=== PATIENT | female | born 1940 | race Caucasian/White ===

== ENCOUNTER 2016-12-29 08:08 | Outpatient (CLI) ==
[2016-12-29 13:12] LABS: BASOPHILS # (AUTO) 0.1 K/uL (0-0.2); BASOPHILS % (AUTO) 0.8 % (0.0-3.0); EOSINOPHILS # (AUTO) 0.2 K/ul (0.0-0.7); EOSINOPHILS % (AUTO) 2.3 % (0.0-7.0); HEMATOCRIT 46.6 % (37.0-47.0); HEMOGLOBIN 14.9 g/dl (12.0-16.0); LYMPHOCYTES # (AUTO) 2.2 K/uL (0.60-3.4); LYMPHOCYTES % (AUTO) 33.3 (10.0-50.0); MEAN CORPUSCULAR HEMOGLOBIN 29.6 pg (27.0-31.0); MEAN CORPUSCULAR VOLUME 92.5 fl (81.0-99.0); MONOCYTES # (AUTO) 0.3 K/uL (0.4-2.0); MONOCYTES % (AUTO) 5.1 (0-10); NEUTROPHILS # (AUTO) 3.9 K/ul (2.0-6.9); NEUTROPHILS % (AUTO) 58.5; PLATELET COUNT 196 10^3/uL (140-440); RED BLOOD COUNT 5.04 10^6/ul (4.20-5.40); WHITE BLOOD COUNT 6.64 K/ul (4.6-10.2)
[2016-12-29 13:26] LABS: BILIRUBIN,URINE Negative (NEGATIVE); KETONES,URINE Negative (NEGATIVE); LEUKOCYTE ESTERASE ,URINE Negative (NEGATIVE); NITRITE,URINE Negative (NEGATIVE); PROTEIN,URINE Negative (NEGATIVE); URINE, BLOOD Negative (NEGATIVE)
[2016-12-29 13:27] LABS: ADD URINE MICROSCOPIC NO
[2016-12-29 14:29] LABS: ALBUMIN 3.7 g/dL (3.4-5.0); ALBUMIN/GLOBULIN RATIO 1.06; ANION GAP 14.7; BILIRUBIN,TOTAL 0.44 mg/dL (0.00-1.20); BUN/CREATININE RATIO 23.07; CALCIUM 9.3 mg/dL (8.2-10.2); CHOL/HDL RATIO 2.8 (4.5-5.5); CREATININE 0.78 mg/dL (0.60-1.30); POTASSIUM 3.7 mmol/L (3.5-5.10); TOTAL PROTEIN 7.2 g/dL (5.8-8.1)
== END 2016-12-29 08:09 | disposition home or self-care (01) ==
LOC: LAB 08:08
PROVIDERS: ATTEND General Practice
DX: E78.5 Hyperlipidemia, unspecified (principal); I10 Essential (primary) hypertension; I63.9 Cerebral infarction, unspecified; Z79.899 Other long term (current) drug therapy; Z68.37 Body mass index [BMI] 37.0-37.9, adult
CPT/HCPCS: 36415; 80053; 80061; 81001; 85025

== ENCOUNTER 2017-05-25 10:35 | Outpatient (CLI) ==
[2017-05-25 13:52] LABS: BASOPHILS % (AUTO) 0.5 % (0.0-3.0); EOSINOPHILS # (AUTO) 0.1 K/ul (0.0-0.7); EOSINOPHILS % (AUTO) 2.2 % (0.0-7.0); HEMATOCRIT 47.9 % (37.0-47.0); HEMOGLOBIN 15.5 g/dl (12.0-16.0); IMMATURE GRANULOCYTE % (AUTO) 0.2 % (0.0-5.0); LYMPHOCYTES # (AUTO) 1.9 K/uL (0.60-3.4); LYMPHOCYTES % (AUTO) 30.3 (10.0-50.0); MEAN CORPUSCULAR HEMOGLOBIN 29.7 pg (27.0-31.0); MEAN CORPUSCULAR HGB CONC 32.4 (31.8-35.4); MEAN CORPUSCULAR VOLUME 91.8 fl (81.0-99.0); MONOCYTES # (AUTO) 0.4 K/uL (0.4-2.0); MONOCYTES % (AUTO) 5.6 (0-10); NEUTROPHILS # (AUTO) 3.9 K/ul (2.0-6.9); NEUTROPHILS % (AUTO) 61.2; PLATELET COUNT 225 10^3/uL (140-440); RED BLOOD COUNT 5.22 10^6/ul (4.20-5.40); WHITE BLOOD COUNT 6.38 K/ul (4.6-10.2)
[2017-05-25 14:14] LABS: ALBUMIN 3.7 g/dL (3.4-5.0); ALBUMIN/GLOBULIN RATIO 0.95; ANION GAP 16.8; BILIRUBIN,TOTAL 0.4 mg/dL (0.00-1.20); BUN/CREATININE RATIO 17.85; CALCIUM 9.4 mg/dL (8.2-10.2); CHOL/HDL RATIO 4.1 (4.5-5.5); CREATININE 0.84 mg/dL (0.60-1.30); POTASSIUM 3.8 mmol/L (3.5-5.10); TOTAL PROTEIN 7.6 g/dL (5.8-8.1)
[2017-05-25 14:29] LABS: BILIRUBIN,URINE Negative (NEGATIVE); KETONES,URINE Negative (NEGATIVE); LEUKOCYTE ESTERASE ,URINE 1+ (NEGATIVE); NITRITE,URINE Negative (NEGATIVE); PH,URINE 5.5 (5-9); PROTEIN,URINE Negative (NEGATIVE); URINE, BLOOD Negative (NEGATIVE)
[2017-05-25 15:10] LABS: ADD URINE MICROSCOPIC YES
[2017-05-25 15:12] LABS: BACTERIA,URINE 1+ (NOT PRESENT)
== END 2017-05-25 10:36 | disposition home or self-care (01) ==
LOC: LAB 10:35
PROVIDERS: ATTEND General Practice
DX: E78.5 Hyperlipidemia, unspecified (principal); I10 Essential (primary) hypertension; Z79.899 Other long term (current) drug therapy
CPT/HCPCS: 36415; 80053; 80061; 81001; 85025; 87086

== ENCOUNTER 2018-02-09 12:16 | Outpatient (CLI) | END 2018-02-09 12:17 | disposition home or self-care (01) | LOC: FCC-LAB 12:16 | PROVIDERS: ATTEND General Practice | DX: E78.5 Hyperlipidemia, unspecified (principal); I10 Essential (primary) hypertension; I63.9 Cerebral infarction, unspecified; Z79.899 Other long term (current) drug therapy; K59.00 Constipation, unspecified | CPT/HCPCS: 36415; 80053; 80061; 81001; 82272; 85025; 87086 ==

== ENCOUNTER 2018-09-06 18:15 | Outpatient (CLI) | payer OTHER | END 2018-09-06 18:16 | disposition home or self-care (01) | LOC: LAB 18:15 | PROVIDERS: ATTEND General Practice | DX: E78.5 Hyperlipidemia, unspecified (principal); Z79.899 Other long term (current) drug therapy; Z68.37 Body mass index [BMI] 37.0-37.9, adult | CPT/HCPCS: 36415; 80053; 80061; 85025 ==

== ENCOUNTER 2018-11-07 08:58 | Emergency (ER) ==
[2018-11-07 09:04] VITALS: BP 181/84; TEMP 98.6; BMI 39.0
--- NOTE | 2018-11-07 09:12 | ED.PDOC ---
General ED Provider: Dr. MAR DANIEL-ER Chief Complaint: Rash Stated Complaint: shashi got this rash--shashi had it before Time Seen by Physician: 09:10 Mode of Arrival: Walk-In Information Source: Patient Exam Limitations: No limitations Primary Care Provider: JUAN RIBEIRO-[facility] Nursing and Triage Documentation Reviewed and Agree: Yes Does patient meet sepsis criteria?: No System Inflammatory Response Syndrome: Not Applicable Sepsis Protocol: For patient's 13 years and over: Temp is 96.8 and below OR 101 and greater Pulse >90 BPM Resp >20/minute Acutely Altered Mental Status Are patient's symptoms suggestive of a new infection, such as: -Pneumonia -Skin, Soft Tissue -Endocarditis -UTI -Bone, Joint Infection -Implantable Device -Acute Abdominal Infection -Wound Infection -Meningitis -Blood Stream Catheter Infection -Unknown Skin Complaint Exam - Skin Rash/Itching Complaint/Exam Onset/Duration: several days Symptoms Are: Still present Initial Severity: Mild Current Severity: Moderate Location: torso Potential Exposures: Reports: Medicines Aggravating: Reports: None Alleviating: Reports: None Associated Signs and Symptoms: Denies: Difficulty breathing, Fever, Chills Skin Findings: Present: Maculae, Lesions Differential Diagnoses: Allergic Reaction, Drug Rash, Other Review of Systems - Review Of Systems Constitutional: Reports: No symptoms Eyes: Reports: No symptoms Ears, Nose, Mouth, Throat: Reports: No symptoms Respiratory: Reports: No symptoms Cardiac: Reports: No symptoms GI: Reports: No symptoms : Reports: No symptoms Musculoskeletal: Reports: No symptoms Skin: Reports: Rash Neurological: Reports: No symptoms Endocrine: Reports: No symptoms Hematologic/Lymphatic: Reports: No symptoms All Other Systems: Reviewed and Negative Past Medical History - Past Medical History Previously Healthy: Yes Endocrine: Reports: None Cardiovascular: Reports: Hypertension Respiratory: Reports: None Hematological: Reports: None Gastrointestinal: Reports: None Genitourinary: Reports: None Neuro/Psych: Reports: None Musculoskeletal: Reports: None Cancer: Reports: None Last Menstrual Period: NONE - Surgical History General Surgical History: Reports: Unknown - Family History Family History: Reports: Unknown - Social History Smoking Status: Former smoker Hx Substance Use: No Alcohol Screening: None Physical Exam - Physical Exam Appearance: Well-appearing, No pain distress, Well-nourished Eyes: AMALIA, EOMI, Conjunctiva clear ENT: Ears normal, Nose normal, Oropharynx normal Neck: Supple Respiratory: Airway patent, Breath sounds clear, Breath sounds equal, Respirations nonlabored Cardiovascular: RRR, Pulses normal, No rub, No murmur GI/: Soft, Nontender, No masses, Bowel sounds normal, No Organomegaly Musculoskeletal: Normal strength, ROM intact, No edema, No calf tenderness Skin: Warm, Dry, Normal color Neurological: Sensation intact, Motor intact, Reflexes intact, Cranial nerves intact, Alert, Oriented Psychiatric: Affect appropriate, Mood appropriate Critical Care Note - Critical Care Note Total Time (mins): 0 Course - Course Vital Signs: Temp Pulse Resp BP Pulse Ox 11/07/18 08:58 98.6 F 83 20 181/84 H 96 Departure - Departure Time of Disposition: 09:12 Disposition: HOME SELF-CARE Discharge Problem: Pruritic rash Instructions: Acute Rash (ED) Condition: Good Pt referred to PMD for follow-up: Yes IPMP verified?: No Additional Instructions: prednisone 20mg x 3 days then 10mg x 4 days then 5mg x 3 days------lidex cream apply tid in a thin layer---recheck with dr ward in a few days if not improving Allergies/Adverse Reactions: Allergies No Known Allergies Allergy (Verified 11/07/18 09:04) Disposition Discussed With: Patient
== END 2018-11-07 09:18 | disposition home or self-care (01) ==
LOC: ED 08:58
DX: R21 Rash and other nonspecific skin eruption (principal); L29.9 Pruritus, unspecified
CPT/HCPCS: 99282

== ENCOUNTER 2019-04-12 07:59 | Outpatient (CLI) | END 2019-04-12 08:00 | disposition home or self-care (01) | LOC: RHC-LAB 07:59 | PROVIDERS: ATTEND General Practice | DX: E78.5 Hyperlipidemia, unspecified (principal); I10 Essential (primary) hypertension; Z79.899 Other long term (current) drug therapy; Z68.37 Body mass index [BMI] 37.0-37.9, adult | CPT/HCPCS: 36415; 80053; 80061; 85025 ==

== ENCOUNTER 2019-04-18 15:46 | Observation (INO) ==
[2019-04-18 16:31] VITALS: BMI 34.2
[2019-04-18] MEDS: LOVENOX SUBCUT SCH (17:35)
--- NOTE | 2019-04-18 18:04 | CT ---
EXAM: CT of the abdomen and pelvis without contrast. HISTORY: Abdominal pain and constipation. PROCEDURE: Contiguous axial CT images of the abdomen and pelvis without contrast with coronal and sa gittal reformats. FINDINGS: The liver, gallbladder, pancreas, spleen, adrenal glands and kidneys are normal in appearan ce. The abdominal aorta is within normal limits in diameter. There are atherosclerotic calcificatio ns in the major arteries of the abdomen and pelvis. The appendix is normal in appearance. There is diverticulosis of the colon with no evidence of diverticulitis. There is ill-defined wall thickening in the rectum measuring approximately 1 cm with perirectal and presacral edema. No free fluid or fr ee air in the abdomen or pelvis. The bladder is adequately filled and normal in appearance. The solomon bg is unremarkable. There are degenerative changes in the spine. Impression: Ill-defined wall thickening in the rectum measuring approximately 1 cm with perirectal an d presacral edema. The differential diagnosis includes proctitis and neoplasm. Diverticulosis of the colon with no evidence of diverticulitis.
[2019-04-18] MEDS ORDERED: INFUVITE ADULT IV ONE (20:14)
[2019-04-18] MEDS: INFUVITE ADULT 10 ML in DEXTROSE 5%-LR IV SOLUTION 1,000 ML IV SCH (20:22)
[2019-04-18] MEDS: COZAAR PO SCH (20:23)
--- NOTE | 2019-04-18 21:35 | CT ---
Exam: CT scan of the thorax without contrast. Date: 04/18/2019. Comparison: None. HISTORY: Fatigue. TECHNIQUE: Helical scan of the thorax was performed without contrast. FINDINGS: The thoracic inlet and axillary regions are normal. Granulomatous calcifications are pres ent in the mediastinum. No suspicious mediastinal adenopathy is seen. Caliber of the thoracic aorta cardiac chambers are normal. The spleen and liver have a uniform attenuation. The gallbladder, sto mach, pancreas and adrenal glands are normal. The kidneys have a normal morphology. No calculi or h ydronephrosis is seen. No acute osseous abnormalities are seen. There is a calcified disc protrusion at T6-7 causing the le ft lateral impression upon the thecal sac and cord. Evaluation at lung window settings demonstrates granulomatous calcifications. No suspicious pulmonar y nodules, pleural fluid or consolidation is present. The tracheobronchial tree is patent. Impression: No acute intrathoracic findings. Old granulomatous disease. There is a calcified disc protrusion at T6-7 causing left lateral impression upon the thecal sac and cord. The clinical significance of this finding is not known. If further evaluation is needed then MRI would be suggested.
[2019-04-19] MEDS: POTASSIUM CHLORIDE IV SCH ×2 (08:47→21:51)
[2019-04-19] MEDS: INFUVITE ADULT IV SCH ×2 (08:47→21:51)
[2019-04-19] MEDS: [UNRECOGNIZED DRUG - OTHER] IV SCH ×2 (08:47→21:51)
[2019-04-19] MEDS: LOVENOX SUBCUT SCH (08:48)
[2019-04-19] MEDS: TOPROL XL PO SCH (08:49)
[2019-04-19] MEDS: HYDROCHLOROTHIAZIDE PO SCH (08:49)
[2019-04-19] MEDS: NON-FORMULARY MEDICATION (Hydroxyzine Hcl [Hydroxyzine Hcl] 10 MG) PO SCH (08:49)
[2019-04-19] MEDS: PLAVIX PO SCH (08:49)
[2019-04-19] MEDS: NORVASC PO SCH (08:50)
[2019-04-19] MEDS: INFUVITE ADULT 10 ML in DEXTROSE 5%-LR IV SOLUTION 1,000 ML IV SCH (08:50)
[2019-04-19] MEDS: K-DUR PO SCH ×2 (08:50→17:07)
[2019-04-19] MEDS: LIPITOR PO SCH (08:50)
[2019-04-19] MEDS: COZAAR PO SCH ×2 (08:53→20:05)
[2019-04-19] MEDS ORDERED: INFUVITE ADULT IV ONE (21:33)
[2019-04-19] MEDS ORDERED: POTASSIUM CHLORIDE 20 MEQ VIAL IV ONE (21:33)
[2019-04-20] MEDS ORDERED: MILK OF MAGNESIA PO STA (08:50)
[2019-04-20] MEDS: PLAVIX PO SCH (08:58)
[2019-04-20] MEDS: LIPITOR PO SCH (08:58)
[2019-04-20] MEDS: HYDROCHLOROTHIAZIDE PO SCH (08:59)
[2019-04-20] MEDS: NORVASC PO SCH (08:59)
[2019-04-20] MEDS ORDERED: MIRALAX PO SCH (09:00)
[2019-04-20] MEDS: TOPROL XL PO SCH (09:00)
[2019-04-20] MEDS: K-DUR PO SCH (09:01)
[2019-04-20] MEDS: COZAAR PO SCH (09:02)
[2019-04-20] MEDS: NON-FORMULARY MEDICATION (Hydroxyzine Hcl [Hydroxyzine Hcl] 10 MG) PO SCH (09:02)
--- NOTE | 2019-04-20 10:01 | HP ---
DATE OF SERVICE: 04/18/19 CHIEF COMPLAINT: Weakness, dehydration, abdominal pain and constipation. HISTORY OF PRESENT ILLNESS: Ms. Richmond is a pleasant 78-year-old patient of Dr. Mcdonald who presented to the office yesterday with complaints of abdominal discomfort, constipation, weakness , inability to eat any solid foods over the past week. She reports that she had tried stool softeners to help with the constipation and had very little results. She did report that she had been going to [employer] since February of 2019 and she had lost some weight however after reviewing chart notes her weight was 219 lbs today and according to the last visit she had lost a total of 22.2 lbs since her visit in December 2018. She does admit that she has not been able to eat any solid foods for the past one week. She denies any nausea however she reports that she just cannot eat. She does feel dehydrated. Upon physical exam she does have poor skin turgor. Her tongue is very dry. She does appear very weak. Abdomen is tender on exam. She is accompanied by her friend, Mary Moreon. She does have issues with chronic constipation. PAST MEDICAL HISTORY: Dyslipidemia Hypertension Stroke PAST SURGICAL HISTORY: None SOCIAL HISTORY: Former smoker, stopped at age 36. Denies any ETOH or recreational drug use. MEDICATIONS: (HOME) Metoprolol Succinate 25 mg Extended Release one tablet daily Lisinopril 20 mg tablet daily Hydrochlorothiazide 25 mg tablet daily Amlodipine 5 mg daily Plavix 75 mg daily Atorvastatin 10 mg daily ALLERGIES: NKDA REVIEW OF SYSTEMS: CONSTITUTIONAL: Denies any fever, chills, nightsweats. Does report a weight change and a weight loss. According to charts, she has had a 22 lb weight loss since her last visit in December 2018. HEENT: Denies any complaints of headache, nasal drainage or sore throat. CARDIOVASCULAR: No reports of chest pain. Regular rhythm. Denies any orthopnea or peripheral edema. LUNGS: No reports of shortness of breath, cough or congestion. No reports of a lung disease. GASTROINTESTINAL: She has some abdominal tenderness. Denies any nausea, vomiting or diarrhea. She has had some issues of constipation unrelieved with stool softeners. Denies any blood in the stool. GENITOURINARY: No reports of dysuria, hematuria, nocturia. Denies any urinary incontinence. MUSCULOSKELETAL: Does report generalized fatigue and weakness. No reports of joint redness, swelling. NEUROLOGIC: No reports of dizziness. Does complain of generalized fatigue. Does have a history of CVA. PSYCHOLOGICAL: No reports of anxiety, depression or mood changes. ENDOCRINE: No history of diabetes mellitus. No reports of thyroid disease. No reports of increased thirst, urination, heat or cold intolerance. INTEGUMENT: She does report a rash that is chronic dry skin to her arms and legs. PHYSICAL EXAMINATION: GENERAL: She is alert, oriented. She does appear dehydrated and very weak. VITAL SIGNS: In the office, she is 67" tall, weight 219 lbs, temperature 97.2, pulse rate 93, respirations 16, blood pressure 118/73, pulse ox 98% on room air. HEENT: Normocephalic, atraumatic. Pupils reactive to light. Conjunctivae clear. Mucous membranes moist. Throat: No inflammation, tumors or exudate. NECK: Supple. No lymphadenopathy. No thyromegaly. No carotid bruits auscultated. CARDIAC: S1, S2, regular rate and rhythm. Peripheral pulses palpable. No peripheral edema. LUNGS: Clear to auscultation. Breathing regular. ABDOMEN: Soft, mild tenderness. Bowel sounds are positive. No rebound tenderness. No rigidity. NEUROLOGIC: Cranial nerves 2-12 grossly intact. No neurological deficit. SKIN: Warm and dry. She does have some dry skin to her upper extremities. LABS/DIAGNOSTIC TESTING: None available. ASSESSMENT: 1. CONSTIPATION WITH ABDOMINAL PAIN 2. DEHYDRATION 3. WEAKNESS AND FATIGUE 4. WEIGHT LOSS 5. HYPERTENSION 6. HYPERLIPIDEMIA PLAN: 1. Admit the patient as a 23 hour observation patient. 2. We will order a CT scan of the abdomen and pelvis. 3. Resume home medications. 4. Place her on telemetry monitoring. 5. Order labs including urine culture. 6. Order IV fluids pending result of CT scan of the abdomen and pelvis. 7. Further orders and recommendation per Dr. Mcdonald. TIME SPENT: GREATER THAN 65 MINUTES MTDD
[2019-04-20] MEDS ORDERED: FLAGYL 500 MG/100 ML 500 MG in PREMIX 100 ML NS 1 BAG IV SCH (10:30)
[2019-04-20] MEDS ORDERED: ROCEPHIN 2 GM in SODIUM CHLORIDE 100 ML IV SCH (10:30)
[2019-04-20] MEDS ORDERED: ROCEPHIN 2 GM in SODIUM CHLORIDE 50 ML IV SCH (11:00)
[2019-04-20 14:04] VITALS: BP 155/65; TEMP 98.7
--- NOTE | 2019-04-21 13:11 | PN ---
DATE OF SERVICE: 04/19/19 SUBJECTIVE: Today Ms. Richmond is resting in her bed. She is in no acute distress. Vital signs this morning at 5:01 this morning: Temperature 98.0, pulse rate 80, blood pressure 134/79, respiratory rate 18, 02 saturation 95% on room air. It was recorded that she had 75% of breakfast this morning. Labs were drawn at 4 o'clock this morning. CBC was unremarkable. Chemistry panel revealed a potassium level of 2.87. BUN 28, creatinine 0.94, GFR 58, LFTs normal. Urinalysis drawn 04/19/19 reviewed and showed negative nitrates and trace amount of blood. She did have a CT scan completed on the abdomen and pelvis as well as a CT of the chest. The CT of the abdomen and pelvis showed an ill-defined wall thickening in the rectum measuring approximately 1 cm with perirectal and presacral edema. The differential diagnosis includes proctitis and neoplasm and also reveals diverticulosis of the colon with no evidence of diverticulitis. A CT of the chest was also completed on admission, does show no acute intrathoracic findings. Shows old granulomatous disease. There was a calcified disk protrusion at T6 through T7 causing left lateral impression upon the thecal sac and cord. The clinical significance of this finding is not known. The findings of the CT scan of the abdomen and pelvis were discussed with the patient this morning by Dr. Mcdonald. The patient does verbalized understanding of the findings. Potassium has been ordered and her IV fluids and potassium oral placement has also been ordered. PT consult has also been ordered in regards to her weakness. Will continue to follow this patient in regards to her test results and lab results and potassium replacement. Further orders and recommendations per Dr. Mcdonald. [facility]
--- NOTE | 2019-04-28 13:08 | DS ---
DATE OF SERVICE: 04/20/19 FINAL DIAGNOSES: 1. Abdominal pain with constipation 2. Concerns for proctitis per CT of the abdomen and pelvis with a differential to including possible neoplasm per the CT scan of the abdomen and pelvis there was an ill defined wall thickening in the rectum measuring approximately 1cm with pararectal and presacral edema with a differential diagnosis to include proctitis and neoplasm. 3. Dehydration treated with IV fluids resolved at discharge 4. Hypokalemia treated with IV potassium and oral Potassium as inpatient resolved at discharge 5. Weakness and fatigue improved at discharge 6. Weight loss 7. Hypertension 8. Hyperlipidemia HOSPITAL COURSE: Mrs. Richmond is a pleasant 78 [address] of Dr[address] Mcdonald who presented to the office with complaints of abdominal discomfort, constipation, weakness and inability to eat any solids over the past one week. She reports that she had tried some stool softeners to help with the constipation and had very little results. She did report that she had been going to [employer] since February 2019 and had lost some weight however after reviewing chart notes her weight was 219 pounds on the day of admission and according to last visit she had lost a total of 22.2 pounds since her visit in December of 2018. She does admit that she had not been able to eat any solid foods for the past one week without any nausea. However she does report that she can not eat. She felt dehydrated. Skin turgor was poor. Her tongue was very dry and she was very visible weak. Abdomen was tender. It was was decided to admit the patient to the hospital for further evaluation and treatment due to the weight loss and inability to eat and further workup of the abdominal tenderness. Pertinent labs and diagnostic testing as she did have a CT scan of the abdominal and pelvic as mentioned above in the assessment and diagnosis it did show concern for proximal proctitis verus neoplasm. She does defer a colonoscopy. She is very persistent that this not be performed. Her Potassium did get as low as 2.87 while inpatient. She was treated with IV Potassium as well as oral Potassium. CBC on admission was 10.99. This has come down to 6.86. Dr. Mcdonald did start her on an antibiotics while inpatient. She was started on Flagyl IV as well as Ceftriaxone IV. She does feel a lot better. Today she is wanting to go home. Her medications were adjusted. Dr. Mcdonald said that he felt the rash was due to possibly the Lisinopril prescription and changed her to Cozaar and this has improved. He is treating the Proctitis with antibiotics. We will send her home on K-dur prescription oral for 20meq daily with plans to recheck her Potassium and kidney next week with a followup appointment. She will also be sent home on Flagyl oral prescription 500mg three times a day for 7 days as well as Cefdinir 300mg #14 twice a day for 7 days to treat her constipation. We discussed about increasing her vegetables in her diet as well as prescription for Miralax 17gram daily. She is agreeable to all of this. DISCHARGE DIET: As mentioned above she will increase the vegetables in her diet and regular diet as tolerated. DISCHARGE MEDICATIONS: Resume her home medications with addition of the medications mentioned above. She will stop her Lisinopril and change to Cozaar 50mg twice a day. K-Dur 20meq daily. The Flagyl 500mg three times a day for 7 days and Cefdinir 300mg # 14 twice a day for 7 days and Miralax 17 grams daily. The rest of her home medications will be resumes. DISCHARGE ACTIVITY LEVEL: Increase activity level as tolerated. Followup appointment in one week with Dr. Mcdonald and BNP next . Further orders and recommendations per Dr. Mcdonald. Medications have been called to [facility]. TIME SPENT: GREATER THAN 30 MINUTES MTDD
== END 2019-04-20 14:46 | disposition home or self-care (01) ==
LOC: MEDSURG A 15:46
PROVIDERS: ADMIT General Practice; ATTEND General Practice
DX: R10.9 Unspecified abdominal pain (principal); R53.1 Weakness; E86.0 Dehydration; K59.00 Constipation, unspecified; R53.83 Other fatigue; R63.4 Abnormal weight loss; I10 Essential (primary) hypertension; E78.5 Hyperlipidemia, unspecified; E87.6 Hypokalemia
CPT/HCPCS: 36415; 80053; 80061; 81001; 82378; 84436; 84443; 85025; 87086; 96361; 96365; 96368; 96372

== ENCOUNTER 2019-04-28 12:12 | Outpatient (CLI) | END 2019-04-28 12:13 | disposition home or self-care (01) | LOC: RHC-LAB 12:12 | PROVIDERS: ATTEND General Practice | DX: K59.00 Constipation, unspecified (principal); E86.0 Dehydration; R53.1 Weakness; R53.83 Other fatigue; E87.6 Hypokalemia | CPT/HCPCS: 36415; 80053 ==

== ENCOUNTER 2019-05-11 09:18 | Outpatient (CLI) | payer OTHER | END 2019-05-11 09:19 | disposition home or self-care (01) | LOC: RHC-LAB 09:18 | PROVIDERS: ATTEND General Practice | DX: E78.5 Hyperlipidemia, unspecified (principal); I10 Essential (primary) hypertension | CPT/HCPCS: 36415; 80053 ==

== ENCOUNTER 2022-10-14 13:24 | Inpatient (IN) ==
[2022-10-14] MEDS ORDERED: SODIUM CHLORIDE 1,000 ML IV STA ×2 (13:36→14:49)
--- NOTE | 2022-10-14 13:41 | ED.PDOC ---
General ED Provider: Dr. DYAN CORRALES MD Chief Complaint: Weakness Stated Complaint: mild to mod general weakness today after slipping off the bed, lives alone, uses a walker, too weak to get off the floor last night, no bleeding, no loc, no neck pain, gcs 15, no NV, no fever, +diarrhea w/o blood, no hx dm or mi Time Seen by Provider: 10/14/22 13:32 Mode of Arrival: Ambulance Information Source: Patient and EMT Nursing and Triage Documentation Reviewed and Agree: Yes Does patient meet sepsis criteria?: No System Inflammatory Response Syndrome: Not Applicable Sepsis Protocol: For patient's 13 years and over: Temp is 96.8 and below OR 101 and greater Pulse >90 BPM Resp >20/minute Acutely Altered Mental Status Are patient's symptoms suggestive of a new infection, such as: -Pneumonia -Skin, Soft Tissue -Endocarditis -UTI -Bone, Joint Infection -Implantable Device -Acute Abdominal Infection -Wound Infection -Meningitis -Blood Stream Catheter Infection -Unknown Review of Systems Review Of Systems Constitutional: Reports Weakness; Denies Fever Eyes: Denies Vision change Ears, Nose, Mouth, Throat: Denies Epistaxis Respiratory: Denies Cough, Short of air or Wheezing Cardiac: Denies Chest pain GI: Denies Abdominal pain or Vomiting Musculoskeletal: Denies Back pain or Neck pain Skin: Denies Rash or Cyanosis Neurological: Denies Cognitive dysfunction or Headache All Other Systems: Other [facility] Medical History Dyslipidemia Hypertension Stroke Family History Mother No problems noted. FATHER ID (myocardial infarction) Social History Smoking and tobacco status: Former smoker Alcohol intake: current Alcohol intake frequency: holidays/special occasions only Alcohol type: beer Substance use type: does not use Counseling given: No Counseling provided: none Household members: none Marital status: W / Lives independently: Yes Number of children: 0 service: No MCFP: No Current occupational status: retired Pets and animals: Yes Sexually active: No Do you think of yourself as: straight/heterosexual Current gender identity: female Female Reproductive History Menstrual Hx Hysterectomy: No Hx Tubal Ligation: No Physical Exam Physical Exam Appearance: Reports Obese Ill-appearing: None Pain Distress: None Eyes: Reports AMALIA, EOMI and Conjunctiva clear ENT: Reports Oropharynx normal Neck: Supple Respiratory: Reports Airway patent Cardiovascular: Reports RRR GI/: Reports Soft and Nontender Musculoskeletal: Reports ROM intact Skin: Reports Warm and Dry Neurological: Reports Alert and Oriented Psychiatric: Reports Affect appropriate Interpretation Radiology Interpretation Radiology Interpretation By: Radiologist Exam Interpreted: CT Scan Xray Comments: no intra abdominal injury Radiology Interpretation By: Radiologist Radiology Results: No acute changes Exam Interpreted: CXR EKG Interpretation Time of EKG #1: 17:49 Rate: Normal Rhythm: Sinus Interpretation: no stemi Critical Care Note Critical Care Note Total Critical Care Time (mins): 0 Course Course Hematology/Chemistry: 10/14/22 13:46 10/14/22 13:46 Orders, Labs, Meds: Lab Review 10/14/22 10/14/22 10/14/22 13:46 13:46 13:46 WBC 7.14 RBC 4.95 Hgb 14.9 Hct 45.4 MCV 91.7 MCH 30.1 MCHC 32.8 RDW Coeff of Gallito 14.1 Plt Count 178 Immature Gran % (Auto) 0.3 Neut % (Auto) 72.1 Lymph % (Auto) 19.5 Smith % (Auto) 7.8 Eos % (Auto) 0.0 Baso % (Auto) 0.3 Neut # (Auto) 5.2 Lymph # (Auto) 1.4 Smith # (Auto) 0.6 Eos # (Auto) 0.0 Baso # (Auto) 0.0 Immature Gran # (Auto) 0.0 Sodium 137.9 Potassium 3.61 Chloride 100.8 Carbon Dioxide 26.9 Anion Gap 13.81 BUN 40.7 H Creatinine 1.04 Estimated GFR (MDRD) 51.00 BUN/Creatinine Ratio 39.13 Glucose 99.2 Lactic Acid 1.44 Calcium 8.32 L Total Bilirubin 0.53 AST 49.7 H ALT 31.6 Alkaline Phosphatase 79.3 Total Creatine Kinase 570.9 H CK-MB (CK-2) 3.590 H CK-MB (CK-2) % 0.6200 Troponin I < 0.012 Total Protein 6.69 Albumin 3.74 Globulin 2.95 Albumin/Globulin Ratio 1.26 Urine Color Urine Clarity Urine pH Ur Specific [place] Urine Protein Urine Glucose (UA) Urine Ketones Urine Blood Urine Nitrite Urine Bilirubin Urine Urobilinogen Ur Leukocyte Esterase Urine Microscopic RBC Urine Microscopic WBC Ur Squamous Epith Cells Urine Bacteria Hyaline Casts Urine Mucus Influ A Molecular Assay Influ B Molecular Assay RSV Antigen SARS CoV-2 RNA Rapid ROBERT 10/14/22 10/14/22 10/14/22 13:50 13:50 17:00 WBC RBC Hgb Hct MCV MCH MCHC RDW Coeff of [place] Plt Count Immature Gran % (Auto) Neut % (Auto) Lymph % (Auto) Smith % (Auto) Eos % (Auto) Baso % (Auto) Neut # (Auto) Lymph # (Auto) Smith # (Auto) Eos # (Auto) Baso # (Auto) Immature Gran # (Auto) Sodium Potassium Chloride Carbon Dioxide Anion Gap BUN Creatinine Estimated GFR (MDRD) BUN/Creatinine Ratio Glucose Lactic Acid Calcium Total Bilirubin AST ALT Alkaline Phosphatase Total Creatine Kinase CK-MB (CK-2) CK-MB (CK-2) % Troponin I Total Protein Albumin Globulin Albumin/Globulin Ratio Urine Color Dark Urine Clarity Clear Urine pH 5.5 Ur Specific [place] >=1.030 Urine Protein 1+ H Urine Glucose (UA) Negative Urine Ketones 1+ H Urine Blood Negative Urine Nitrite Negative Urine Bilirubin 1+ H Urine Urobilinogen 1.0 H Ur Leukocyte Esterase Negative Urine Microscopic RBC 0-2 Urine Microscopic WBC 2-5 Ur Squamous Epith Cells 2-5 Urine Bacteria 1+ Hyaline Casts 2-5 Urine Mucus 2+ Influ A Molecular Assay Positive by naat H Influ B Molecular Assay Negative by naat RSV Antigen Negative by naat SARS CoV-2 RNA Rapid ROBERT Negative Orders Category Date Time Status EKG-(ED ONLY) Stat CARDIO 10/14/22 13:36 Completed Orthostatic Vital Signs [ED ORTHOSTATIC VITAL SIGNS] . EMERGENCY 10/14/22 17:26 Active ONCE CBC W/ AUTO DIFF Stat LAB 10/14/22 13:46 Completed CMP [COMPREHENSIVE METABOLIC PANEL] Stat LAB 10/14/22 13:46 Completed CPK [CREATINE KINASE] Stat LAB 10/14/22 13:46 Completed LACTIC ACID Stat LAB 10/14/22 13:46 Completed MOLECULAR FLU A & B [FLU A/B MOLECULAR] Stat LAB 10/14/22 13:50 Completed RAPID STREP SCREEN [MOLECULAR GROUP A STREP] Stat LAB 10/14/22 13:50 Completed RSV Stat LAB 10/14/22 13:50 Completed SARS COV-2 RNA RAPID ROBERT Stat LAB 10/14/22 13:50 Completed TROPONIN I Stat LAB 10/14/22 13:46 Completed URINALYSIS C & S IF INDICATED Stat LAB 10/14/22 17:00 Completed URINE CULTURE Stat LAB 10/14/22 17:00 Received Sodium Chloride 0.9% [Sodium Chloride] 1,000 ml MEDS 10/14/22 13:36 Discontinued IV BOLUS Sodium Chloride 0.9% [Sodium Chloride] 1,000 ml MEDS 10/14/22 14:49 Discontinued IV BOLUS CHEST, 1V AP ONLY Stat RADS 10/14/22 13:[address] ABDOMEN/PELVIS WO CONTRAST Stat RADS 10/14/22 13:36 Completed Medications Discontinued Medications Generic Name Dose Route Start Last Admin Trade Name Freq PRN Reason Stop Dose Admin Sodium Chloride 1,000 mls @ 1,000 mls/hr 10/14/22 13:36 10/14/22 14:35 Sodium Chloride IV 10/14/22 14:35 1,000 mls/hr BOLUS STA Administration Sodium Chloride 1,000 mls @ 1,000 mls/hr 10/14/22 14:49 10/14/22 16:14 Sodium Chloride IV 10/14/22 15:48 1,000 mls/hr BOLUS STA Administration Vital Signs: Temp Pulse Resp BP Pulse Ox 10/14/22 17:47 84 90/59 L 10/14/22 17:47 76 123/75 10/14/22 17:46 79 176/93 H 10/14/22 13:24 97.2 F L 85 20 139/81 98 Discharge Plan Discharge Patient Disposition: ADMITTED INPATIENT Discharge Problem: Influenza A, Rhabdomyolysis, Acute dehydration Prescriptions: No Action amlodipine 10 mg tablet 10 mg PO QDAY Qty: 90 2RF atorvastatin [Lipitor] 10 mg tablet 10 mg PO DAILY Qty: 90 2RF clopidogrel [Plavix] 75 mg tablet 75 mg PO DAILY Qty: 90 2RF hydrochlorothiazide 12.5 mg tablet 12.5 mg PO QDAY Qty: 90 2RF losartan 100 mg tablet 100 mg PO QDAY Qty: 90 2RF Did you review [place] MAPPING ENGINEER?: Not Applicable ED Provider: DYAN CORRALES Condition: Stable Physician Progress Note: []full tele admit for influenza, dehydration, rhabdomyolysis to hospitalist
[2022-10-14 13:52] LABS: BASOPHILS % (AUTO) 0.3 % (0.0-3.0); HEMATOCRIT 45.4 % (37.0-47.0); HEMOGLOBIN 14.9 g/dl (12.0-16.0); IMMATURE GRANULOCYTE % (AUTO) 0.3 % (0.0-5.0); LYMPHOCYTES # (AUTO) 1.4 K/uL (0.60-3.4); LYMPHOCYTES % (AUTO) 19.5 (10.0-50.0); MEAN CORPUSCULAR HEMOGLOBIN 30.1 pg (27.0-31.0); MEAN CORPUSCULAR HGB CONC 32.8 (31.8-35.4); MEAN CORPUSCULAR VOLUME 91.7 fl (81.0-99.0); MONOCYTES # (AUTO) 0.6 K/uL (0.4-2.0); MONOCYTES % (AUTO) 7.8 (0-10); NEUTROPHILS # (AUTO) 5.2 K/ul (2.0-6.9); NEUTROPHILS % (AUTO) 72.1 % (42.2-75.2); PLATELET COUNT 178 10^3/uL (140-440); RDW COEFFICIENT OF VARIATION 14.1 % (11.6-14.8); RED BLOOD COUNT 4.95 10^6/ul (4.20-5.40); WHITE BLOOD COUNT 7.14 K/ul (4.6-10.2)
[2022-10-14 14:08] LABS: ALANINE AMINOTRANSFERASE 31.6 U/L (0-35); ALBUMIN 3.74 g/dL (3.5-5.0); ALKALINE PHOSPHATASE 79.3 U/L (53-141); ASPARTATE AMINO TRANSFERASE 49.7 U/L (14-36); BILIRUBIN,TOTAL 0.53 mg/dL (0.2-1.3); BLOOD UREA NITROGEN 40.7 mg/dL (7-17); CALCIUM 8.32 mg/dL (8.4-10.2); CARBON DIOXIDE 26.9 mmol/L (22-30.0); CHLORIDE 100.8 mmol/L (98-107); CREATINE KINASE 570.9 U/L (30-135); CREATININE 1.04 mg/dL (0.60-1.30); GLUCOSE 99.2 mg/dL (74-106); POTASSIUM 3.61 mmol/L (3.5-5.1); SODIUM 137.9 mmol/L (134.5-145); TOTAL PROTEIN 6.69 g/dL (6.3-8.2)
[2022-10-14 14:21] LABS: MOLECULAR FLU A POSITIVE BY NAAT (NEGATIVE); MOLECULAR FLU B NEGATIVE BY NAAT (NEGATIVE); RSV MOLECULAR NEGATIVE BY NAAT (NEGATIVE)
--- NOTE | 2022-10-14 14:31 | DI ---
EXAM: Chest one-view portable AP upright HISTORY: Week COMPARISON: None FINDINGS: The lungs are clear. Cardiac silhouette is normal. Vascular calcifications present in th e aortic arch. Cardiac monitoring leads are present. IMPRESSION: Negative chest. No active cardiopulmonary disease
[2022-10-14 14:39] LABS: TROPONIN I < 0.012 ng/ml (0.0000-0.120)
--- NOTE | 2022-10-14 14:39 | CT ---
EXAM: CT of the abdomen and pelvis without contrast. TECHNIQUE: CT of the abdomen and pelvis was performed without the use of contrast. Multiplanar refo rmats were performed. HISTORY: Fall. Diarrhea times 3 days. COMPARISON: 04/18/2019 FINDINGS: Evaluation of solid organs and blood vessels is suboptimal without the benefit of contrast. Imaged lower thorax: There is a small hiatal hernia. There are reticular nodular like changes within the right middle lobe which is potentially inflammatory and a change from 2019. Consider three to 6 -month interval follow-up to document resolution. Liver: Unremarkable. Gallbladder/Bile Ducts: No biliary dilation. Gallbladder is unremarkable. Spleen: Unremarkable. Pancreas: Unremarkable. Adrenals: Unremarkable. Kidneys/Ureters: No stones, mass or obstruction evident. Bowel/mesentery/peritoneum: Scattered sigmoid diverticuli. No acute inflammatory process. Moderate fecal retention at the rectosigmoid junction. Normal appendix. No free air or free fluid. Retroperitoneum/vessels: No aortic aneurysm. No adenopathy. Pelvis: Bladder wall contours normal. Bones/body wall: No abdominal wall defects of significance. Degenerative changes are present within the spine, hips and pelvis. No fracture evident. IMPRESSION: 1. Diverticulosis. 2. Degenerative changes of the spine hips and pelvis. All CT scans are performed using dose optimization techniques as appropriate to the performed exam an d includes at least one of the following: Automated exposure control, adjustment of the mA and/or kV according to size, and the use of iterative reconstruction technique. All CT scans are performed using dose optimization techniques as appropriate to the performed exam an d include at least one of the following: Automated exposure control, adjustment of the mA and/or kV according t o size, and the use of iterative reconstruction technique.
[2022-10-14 17:15] LABS: BILIRUBIN,URINE 1+ (NEGATIVE); CLARITY,URINE Clear (CLEAR); COLOR,URINE Dark (YELLOW); GLUCOSE, URINE (UA) Negative (NEGATIVE); KETONES,URINE 1+ (NEGATIVE); LEUKOCYTE ESTERASE ,URINE Negative (NEGATIVE); NITRITE,URINE Negative (NEGATIVE); PH,URINE 5.5 (5-9); PROTEIN,URINE 1+ (NEGATIVE); URINE, BLOOD Negative (NEGATIVE)
[2022-10-14 17:24] LABS: URINE RBC, MICROSCOPIC 0-2 (0-2)
[2022-10-14 17:25] LABS: BACTERIA,URINE 1+ (NOT PRESENT); MUCUS,URINE 2+ (NOT PRESENT)
[2022-10-14] MEDS ORDERED: TYLENOL PO PRN (17:51)
[2022-10-14 18:31] VITALS: BMI 35.7
[2022-10-14] MEDS: SODIUM CHLORIDE 1,000 ML IV SCH (18:32)
[2022-10-14] MEDS: COZAAR PO SCH (22:15)
[2022-10-14] MEDS: HYDROCHLOROTHIAZIDE PO SCH (22:16)
[2022-10-14] MEDS ORDERED: COZAAR PO SCH (22:30)
[2022-10-14] MEDS ORDERED: HYDROCHLOROTHIAZIDE PO SCH (22:30)
[2022-10-15 00:31] LABS: CREATINE KINASE 595.8 U/L (30-135)
[2022-10-15 00:49] LABS: TROPONIN I < 0.012 ng/ml (0.0000-0.120)
[2022-10-15] MEDS: SODIUM CHLORIDE 1,000 ML IV SCH ×3 (04:05→19:55)
[2022-10-15 08:07] LABS: BASOPHILS % (AUTO) 0.2 % (0.0-3.0); EOSINOPHILS % (AUTO) 0.2 % (0.0-7.0); HEMATOCRIT 40.7 % (37.0-47.0); HEMOGLOBIN 13.2 g/dl (12.0-16.0); IMMATURE GRANULOCYTE % (AUTO) 0.2 % (0.0-5.0); LYMPHOCYTES # (AUTO) 1.5 K/uL (0.60-3.4); LYMPHOCYTES % (AUTO) 30.7 (10.0-50.0); MEAN CORPUSCULAR HEMOGLOBIN 29.8 pg (27.0-31.0); MEAN CORPUSCULAR HGB CONC 32.4 (31.8-35.4); MEAN CORPUSCULAR VOLUME 91.9 fl (81.0-99.0); MONOCYTES # (AUTO) 0.5 K/uL (0.4-2.0); MONOCYTES % (AUTO) 9.7 (0-10); NEUTROPHILS # (AUTO) 2.8 K/ul (2.0-6.9); PLATELET COUNT 143 10^3/uL (140-440); RDW COEFFICIENT OF VARIATION 14.1 % (11.6-14.8); RED BLOOD COUNT 4.43 10^6/ul (4.20-5.40); WHITE BLOOD COUNT 4.76 K/ul (4.6-10.2)
[2022-10-15 08:24] LABS: ALANINE AMINOTRANSFERASE 31.4 U/L (0-35); ALBUMIN 3.06 g/dL (3.5-5.0); ALKALINE PHOSPHATASE 75.2 U/L (53-141); ASPARTATE AMINO TRANSFERASE 50.6 U/L (14-36); BILIRUBIN,TOTAL 0.49 mg/dL (0.2-1.3); BLOOD UREA NITROGEN 24.9 mg/dL (7-17); CALCIUM 7.56 mg/dL (8.4-10.2); CARBON DIOXIDE 21.8 mmol/L (22-30.0); CHLORIDE 109.8 mmol/L (98-107); CREATINE KINASE 589.4 U/L (30-135); CREATININE 0.83 mg/dL (0.60-1.30); GLUCOSE 74.4 mg/dL (74-106); POTASSIUM 3.38 mmol/L (3.5-5.1); SODIUM 137.7 mmol/L (134.5-145)
[2022-10-15 08:36] LABS: TROPONIN I < 0.012 ng/ml (0.0000-0.120)
[2022-10-15] MEDS: HYDROCHLOROTHIAZIDE PO SCH (09:17)
[2022-10-15] MEDS: LIPITOR PO SCH (09:17)
[2022-10-15] MEDS: PLAVIX PO SCH (09:18)
[2022-10-15] MEDS: COZAAR PO SCH (09:18)
[2022-10-15] MEDS: NORVASC PO SCH (09:18)
--- NOTE | 2022-10-15 10:20 | PCM.PROG ---
Date Seen by Provider: 10/15/22 Time Seen by Provider: 10:17 Subjective: dx. influenza A, dehydration, rhabdomyolysis pt still general weakness Objective: Vitals: T=98.3 F, P=71, R=18, WR=686/63, SPO2=97 HEENT: []conjunctiva clear Neck: []supple Lungs: [] clear CVS: []rrr Abdomen: []soft and nontender Extremities: []warm and dry Neurological: []alert Skin: []pink Lab/Tests/Diagnostic Imaging: [] bun 24, K+ 3.3 Plan: increase ivns to 125cc/hr, am labs and cpk, ot and pt consult care to Dr Roldan at 19:00
--- NOTE | 2022-10-15 10:25 | RS.OTINEVL ---
Subjective - Patient information Date of Evaluation: 10/15/22 Date of Arrival on Unit: 10/14/22 Admitted From:: Home Diagnosis: FLU A positive, dehydration, rhabdomyolysis PRECAUTIONS: Weakness in standing Usual Living Arrangement: Alone Living Arrangement Comments: Pt lives alone and drives herself independently. Pt has a house keeper once a week. Pt has a ramp to enter her home and a walk in shower. Home Environment: House, Level/No stairs, Ramp Medical History: Hypertension, CVA/TIA, Arthritis Medications: see chart - Level of function Prior to this admission, the patient could do the following:: Independent Selfcare, Independent ADL's, Independent Ambulation (with quad cane), Perform Eyeletter/Cooking, Drive Abilities prior to this admission: Ambulated with a quad cane and drove herself. Current Level of Function: Partially Dependent Comments: Pt would benefit from a RW. Current Equipment Used at Home: SHOWER CHAIR Interventions - Objective Patient Orientation: Person, Place, Situation Current Interventions: IV's, Telemetry Observation: Pt is Min A for sit to stand from toilet. Pt is independent with personal hygiene. Pt is min A to transfer due to weakness and unsteadiness. Interventions - ROM Right Upper Extremity AROM: WFL's Left Upper Extremity AROM: WFL's - Strength Right Upper Extremity Strength: Mild Weakness Left Upper Extremity Strength: Mild Weakness - Sensation Right Upper Extremity Sensation: Intact/Normal Left Upper Extremity Sensation: Intact/Normal Balance - Sitting Balance Static Sitting Balance: Fair Dynamic Sitting Balance: Fair - Standing Balance Static Standing Balance: Poor Dynamic Standing Balance: Poor ADL Skills - Self Feeding Self Feeding: Independent - Grooming Grooming: Min Assist - Bathing Bathing UE: CGA Bathing LE: Min Assist Bathing Set-up: Shower - Dressing Dressing UE: Independent Dressing LE: Min Assist - Toilet Management Toilet Hygiene: Independent Toilet Clothing Management: CGA Functional Mobility - Bed Mobility Rolling R/L: CGA Supine to Sit: Min Assist - Transfers Sit to Stand: Min Assist Stand to Sit: Min Assist - Ambulation Weight Bearing Status: FWB Assistive Device Used: Rolling Walker Assistance needed with Ambulation: 1 person assist - Safety Awareness Safety Awareness: Fair NATHALIE INDEX SCORE: . Additional Treatment Performed - Time with patient Length of Evaluation: 18 Total treatment time: 18 Activities Do you enjoy playing games?: Yes Would you be interested in leaving your room for activities?: Yes Would you enjoy group activities?: Yes Do you have difficulty with your vision?: No Patient Interests:: Watching Television, Visiting/Socializing Patient Education Patient Education: Education of diagnosis, Home Exercise Program, Education of Plan of Care Teaching Recipient: Patient Teaching Methods: Discussion, Demonstration Assessment Problem List:: Decreased level of function, Decreased safety/Risk of falls, Weakness Rehab Potential: Good Further Therapy Indicated?: Yes Evaluation Complexity: HISTORY: Medium, EXAM OF BODY SYSTEMS: Medium, CLINICAL DECISION MAKING: Medium Patient's Goal(s): To get stronger and increase her safety so she can return home. Short Term Goals - Goals GOAL 1: Pt to improve toilet transfers to CGA with RW. Goal to be met by: 10/17/22 GOAL 2: Pt to increase independence of sink level ADL to CGA. Goal to be met by: 10/17/22 GOAL 3: Pt to increase BUE strength to 4+/5. Goal to be met by: 10/17/22 GOAL 4: Pt to increase dyn. std. bal. to Fair+. Goal to be met by: 10/17/22 Aesthetics Instructor Goals GOAL 1: Pt to be (I) with toilet transfers. Goal to be met by: 10/21/22 GOAL 2: Pt to increase BUE strength to 5/5. Goal to be met by: 10/21/22 GOAL 3: Pt to increase dyn. std. bal. to G- to increase safety of ADLs. Goal to be met by: 10/21/22 Plan Plan of Care: Therapeutic EX, Therapeutic Activity, Self-Care/Home Management Frequency of Treatment: 1-2 X day, as tolerated Duration of Treatment: 1 Week Anticipated Discharge Destination: Home Treatment Diagnosis (ICD 10 Codes): Weakness M62.81, Z74.1 Need for assistance with personal care. Has the Physician been added for Co-signature?: Yes
--- NOTE | 2022-10-15 11:39 | RS.PTINEVL ---
Subjective - Patient information Date of Evaluation: 10/15/22 Date of Arrival on Unit: 10/14/22 Admitted From:: Home Diagnosis: FLU+, acute dehydration, rhabdomyolysis, fall Usual Living Arrangement: Alone Home Environment: House, Level/No stairs, Ramp Medical History: Hypertension, CVA/TIA, Arthritis Medications: see chart Subjective Information/ Patient Comments:: pt states that she is feeling better this morning. pt reports that she has a surgical aide once a week but that she still does her cooking and driving. - Level of function Prior to this admission, the patient could do the following:: Independent Selfcare, Independent ADL's, Independent Ambulation (with quad cane), Perform Credit Control Officer/Cooking, Drive Current Level of Function: Partially Dependent Current Equipment Used at Home: SHOWER CHAIR Interventions - Objective Patient Orientation: Person, Place, Time, Situation Current Interventions: IV's, Telemetry Observation: pt with min non pitting edema BLE Range of Motion - ROM Right Upper Extremity AROM: WFL's Left Upper Extremity AROM: WFL's Right Lower Extremity AROM: WFL's Left Lower Extremity AROM: WFL's Muscle Strength - Muscle Strength Right Upper Extremity Strength: Mild Weakness (grossly 4+/5) Left Upper Extremity Strength: Mild Weakness (grossly 4+/5) Right Lower Extremity Strength: Mild Weakness (hip flex 4/5, knee flex/ext 4/5, ankle DF/PF 4/5) Left Lower Extremity Strength: Mild Weakness (hip flex 4/5, knee flex/ext 4/5, ankle DF/PF 4/5) Sensation - Sensation Right Upper Extremity Sensation: Intact/Normal Left Upper Extremity Sensation: Intact/Normal Right Lower Extremity Sensation: Intact/Normal Left Lower Extremity Sensation: Intact/Normal Palpation Palpation Findings: None/Normal Balance - Sitting Balance and Reactions Static Sitting Balance: Good Dynamic Sitting Balance: Good - Standing Balance and Reactions Static Standing Balance: Fair (fair-) Dynamic Standing Balance: Poor Standing Equilibrium Reactions: Delayed Left, Delayed Right Standing Protective Reactions: Delayed Left, Delayed Right - Comments Balance Assessment Comments: pt with episode of lateral LOB while ambulating with quad cane and required min to mod assist to prevent fall. Functional Mobility - Bed Mobility Rolling R/L: CGA Supine to Sit: CGA - Transfers Sit to Stand: Min Assist Stand to Sit: Min Assist - Safety Awareness Safety Awareness: Fair NATHALIE INDEX SCORE: n/a Ambulation - Ambulation Assistive Device Used: Rolling Walker Orthotic/Prosthetic Device: No Distance: 15ft w quad cane min x 1 + 20ft with rwx with CGA Assistance needed with Ambulation: CGA, Min Assist Gait Deviations: Wide Based gait, Forward posture, Short stride, Deviates from path Factors Affecting Ambulation: Decreased Balance, Weakness, Decreased Safety, Limited Endurance Treatment time - Time with patient Length of Evaluation: 19 Total treatment time: 31 Patient Education - Education Patient Education: Activity Modification, Education of Plan of Care Teaching Recipient: Patient Teaching Methods: Discussion, Demonstration Comments: discussion regarding POC and home safety Assessment - Assessment Problem List:: Decreased level of function, Requires training/education, Decreased safety/Risk of falls, Weakness Rehab Potential: Good Further Therapy Indicated?: Yes Candidate for Swing Bed for Therapy Services?: Feel pt would need to be reassessed at a later date. Evaluation Complexity: HISTORY: Medium, EXAM OF BODY SYSTEMS: Medium, CLINICAL PRESENTATION: Medium, CLINICAL DECISION MAKING: Medium Patient's Goal(s): Get stronger and go home. Short Term Goals GOAL #1: pt demonstrate rolling and scooting up in bed. Goal to be met by: 10/17/22 GOAL #2: Transfer sup to/from sit SBA Goal to be met by: 10/17/22 GOAL #3: Sit to/from stand CGA Goal to be met by: 10/17/22 GOAL #4: pt amb with rwx 75ft with CGA with no LOB Goal to be met by: 10/17/22 GOAL #5: Improve BLE strength 4+/5 Goal to be met by: 10/17/22 Dynamo Tender Goals GOAL #1: pt independent with sup to/from sit to/from stand Goal to be met by: 10/19/22 GOAL #2: pt amb with rwx functional household distances SBA Goal to be met by: 10/19/22 GOAL #3: pt able to stand and reach away and across midline without LOB Goal to be met by: 10/19/22 Plan Plan of Care: Therapeutic EX, Therapeutic Activity Other:: gait training Frequency of Treatment: 1-2 X day, as tolerated Duration of Treatment: 5 days Anticipated Discharge Destination: Home Treatment Diagnosis (ICD 10 Codes): R 26.2 difficulty walking. R 26.81 balance impaired. M62.81 muscle weakness Has the Physician been added for Co-signature?: Yes
[2022-10-16] MEDS: SODIUM CHLORIDE 1,000 ML IV SCH (02:33)
[2022-10-16 05:47] LABS: BASOPHILS % (AUTO) 0.5 % (0.0-3.0); EOSINOPHILS % (AUTO) 0.2 % (0.0-7.0); HEMATOCRIT 39.9 % (37.0-47.0); HEMOGLOBIN 12.7 g/dl (12.0-16.0); IMMATURE GRANULOCYTE % (AUTO) 0.2 % (0.0-5.0); LYMPHOCYTES # (AUTO) 1.8 K/uL (0.60-3.4); LYMPHOCYTES % (AUTO) 42.7 (10.0-50.0); MEAN CORPUSCULAR HEMOGLOBIN 29.8 pg (27.0-31.0); MEAN CORPUSCULAR HGB CONC 31.8 (31.8-35.4); MEAN CORPUSCULAR VOLUME 93.7 fl (81.0-99.0); MONOCYTES # (AUTO) 0.4 K/uL (0.4-2.0); MONOCYTES % (AUTO) 8.4 (0-10); PLATELET COUNT 131 10^3/uL (140-440); RDW COEFFICIENT OF VARIATION 14.1 % (11.6-14.8); RED BLOOD COUNT 4.26 10^6/ul (4.20-5.40); WHITE BLOOD COUNT 4.17 K/ul (4.6-10.2)
[2022-10-16 06:02] LABS: ALANINE AMINOTRANSFERASE 30.1 U/L (0-35); ALBUMIN 2.9 g/dL (3.5-5.0); ASPARTATE AMINO TRANSFERASE 41.2 U/L (14-36); BILIRUBIN,TOTAL 0.35 mg/dL (0.2-1.3); BLOOD UREA NITROGEN 15.8 mg/dL (7-17); CALCIUM 7.59 mg/dL (8.4-10.2); CARBON DIOXIDE 25.5 mmol/L (22-30.0); CHLORIDE 111.2 mmol/L (98-107); CREATININE 0.76 mg/dL (0.60-1.30); POTASSIUM 3.21 mmol/L (3.5-5.1); SODIUM 139.5 mmol/L (134.5-145); TOTAL PROTEIN 5.45 g/dL (6.3-8.2)
--- NOTE | 2022-10-16 08:06 | PCM.PROG ---
Date Seen by Provider: 10/16/22 Time Seen by Provider: 08:00 Subjective: Patient denies pain. She is still quite weak. Denies respiratory complaints. Objective: Vitals: T=97.6 F, P=75, R=20, LW=014/78, SPO2=98 Obese elderly female who is alert and in NAD. She is breathing easily. HEENT: [] Neck: [] No JVD Lungs: [] Clear. Breath sounds equal. CVS: [] RRR Abdomen: [] Extremities: [] Neurological: [] No sensory or motor deficits. Skin: [] Lab/Tests/Diagnostic Imaging: [] (1) Influenza A: Status: Acute Code(s): J10.1 - Influenza due to other identified influenza virus with other respiratory manifestations SNOMED Code(s): 514555292 (2) Rhabdomyolysis: Status: Acute Code(s): M62.82 - Rhabdomyolysis SNOMED Code(s): 155537541 Assessment: Renal function normal. (3) Acute dehydration: Status: Acute Code(s): E86.0 - Dehydration SNOMED Code(s): 46695765 Assessment: Hydration status is euvolemic. (4) Generalized weakness: Status: Acute Code(s): R53.1 - Weakness SNOMED Code(s): 39452590 Plan: Continue mobilization and strengthening as per PT and OT. Lock IV fluids.
[2022-10-16] MEDS: NORVASC PO SCH (09:20)
[2022-10-16] MEDS: PLAVIX PO SCH (09:20)
[2022-10-16] MEDS: LIPITOR PO SCH (09:20)
[2022-10-16] MEDS: COZAAR PO SCH (09:20)
[2022-10-16] MEDS: HYDROCHLOROTHIAZIDE PO SCH (09:21)
[2022-10-16] MEDS: MUCINEX PO SCH ×2 (15:28→20:34)
[2022-10-17 05:15] LABS: BASOPHILS % (AUTO) 0.2 % (0.0-3.0); EOSINOPHILS % (AUTO) 0.6 % (0.0-7.0); HEMOGLOBIN 12.8 g/dl (12.0-16.0); IMMATURE GRANULOCYTE % (AUTO) 0.2 % (0.0-5.0); LYMPHOCYTES # (AUTO) 2.3 K/uL (0.60-3.4); LYMPHOCYTES % (AUTO) 48.6 (10.0-50.0); MEAN CORPUSCULAR HGB CONC 32.8 (31.8-35.4); MEAN CORPUSCULAR VOLUME 91.3 fl (81.0-99.0); MONOCYTES # (AUTO) 0.4 K/uL (0.4-2.0); MONOCYTES % (AUTO) 9.1 (0-10); NEUTROPHILS # (AUTO) 1.9 K/ul (2.0-6.9); NEUTROPHILS % (AUTO) 41.3 % (42.2-75.2); PLATELET COUNT 154 10^3/uL (140-440); RDW COEFFICIENT OF VARIATION 14.1 % (11.6-14.8); RED BLOOD COUNT 4.27 10^6/ul (4.20-5.40); WHITE BLOOD COUNT 4.63 K/ul (4.6-10.2)
[2022-10-17 05:31] LABS: ALANINE AMINOTRANSFERASE 28.8 U/L (0-35); ALBUMIN 3.04 g/dL (3.5-5.0); ALKALINE PHOSPHATASE 70.7 U/L (53-141); ASPARTATE AMINO TRANSFERASE 32.3 U/L (14-36); BILIRUBIN,TOTAL 0.42 mg/dL (0.2-1.3); BLOOD UREA NITROGEN 11.5 mg/dL (7-17); CALCIUM 7.97 mg/dL (8.4-10.2); CARBON DIOXIDE 29.3 mmol/L (22-30.0); CHLORIDE 105.9 mmol/L (98-107); CREATININE 0.71 mg/dL (0.60-1.30); GLUCOSE 88.9 mg/dL (74-106); POTASSIUM 2.93 mmol/L (3.5-5.1); SODIUM 138.6 mmol/L (134.5-145); TOTAL PROTEIN 5.64 g/dL (6.3-8.2)
[2022-10-17] MEDS ORDERED: K-DUR PO ONE ×2 (08:45→10:30)
[2022-10-17] MEDS: HYDROCHLOROTHIAZIDE PO SCH (09:14)
[2022-10-17] MEDS: LIPITOR PO SCH (09:14)
[2022-10-17] MEDS: MIRALAX PO SCH (09:14)
[2022-10-17] MEDS: PLAVIX PO SCH (09:14)
[2022-10-17] MEDS: NORVASC PO SCH (09:14)
[2022-10-17] MEDS: COZAAR PO SCH (09:14)
[2022-10-17] MEDS: MUCINEX PO SCH ×2 (09:14→20:25)
[2022-10-17 13:34] LABS: BLOOD UREA NITROGEN 12.6 mg/dL (7-17); CALCIUM 8.17 mg/dL (8.4-10.2); CARBON DIOXIDE 30.2 mmol/L (22-30.0); CHLORIDE 103.5 mmol/L (98-107); CREATININE 0.7 mg/dL (0.60-1.30); GLUCOSE 114.1 mg/dL (74-106); POTASSIUM 3.39 mmol/L (3.5-5.1); SODIUM 136.7 mmol/L (134.5-145)
--- NOTE | 2022-10-17 16:45 | PCM.PROG ---
Date Seen by Provider: 10/17/22 Time Seen by Provider: 09:00 Subjective: CC - feeling slowly better. Eating better. Moving about when motivated to do so. Objective: Vitals: T=97.2 F, P=72, R=16, HX=109/84, SPO2=98 HEENT: [wnl] Neck: supple Lungs: clear[] CVS: [RRR no m] Abdomen: soft, generalized cramping[] Extremities: [intact] Neurological: intact] Skin: [wnl] Lab/Tests/Diagnostic Imaging: [see labs] (1) Influenza A: Status: Acute Code(s): J10.1 - Influenza due to other identified influenza virus with other respiratory manifestations SNOMED Code(s): 102896607 Assessment: Supportive treatment. Slowly improving , less GI upset from this. No change in tx. (2) Rhabdomyolysis: Status: Acute Code(s): M62.82 - Rhabdomyolysis SNOMED Code(s): 544893140 Assessment: Mild muscle injury from lying on the floor after slipping out of bed. Clinically improved. (3) Acute dehydration: Status: Acute Code(s): E86.0 - Dehydration SNOMED Code(s): 57125140 Assessment: Acute volume depletion - resolved. (4) Generalized weakness: Status: Acute Code(s): R53.1 - Weakness SNOMED Code(s): 61649983 Plan: Continue symptomatic tx. Encourage ambulation. She is thinking about d/c tomorrow.
[2022-10-18 06:00] LABS: BASOPHILS % (AUTO) 0.2 % (0.0-3.0); EOSINOPHILS # (AUTO) 0.1 K/ul (0.0-0.7); EOSINOPHILS % (AUTO) 1.2 % (0.0-7.0); HEMATOCRIT 39.9 % (37.0-47.0); HEMOGLOBIN 12.9 g/dl (12.0-16.0); IMMATURE GRANULOCYTE % (AUTO) 0.2 % (0.0-5.0); LYMPHOCYTES # (AUTO) 2.3 K/uL (0.60-3.4); LYMPHOCYTES % (AUTO) 44.6 (10.0-50.0); MEAN CORPUSCULAR HEMOGLOBIN 29.5 pg (27.0-31.0); MEAN CORPUSCULAR HGB CONC 32.3 (31.8-35.4); MEAN CORPUSCULAR VOLUME 91.1 fl (81.0-99.0); MONOCYTES # (AUTO) 0.5 K/uL (0.4-2.0); MONOCYTES % (AUTO) 8.7 (0-10); NEUTROPHILS # (AUTO) 2.3 K/ul (2.0-6.9); NEUTROPHILS % (AUTO) 45.1 % (42.2-75.2); PLATELET COUNT 168 10^3/uL (140-440); RED BLOOD COUNT 4.38 10^6/ul (4.20-5.40); WHITE BLOOD COUNT 5.16 K/ul (4.6-10.2)
[2022-10-18 06:06] VITALS: BP 133/76; TEMP 97.4
[2022-10-18 06:13] LABS: ALANINE AMINOTRANSFERASE 27.4 U/L (0-35); ALBUMIN 3.12 g/dL (3.5-5.0); ALKALINE PHOSPHATASE 76.1 U/L (53-141); ASPARTATE AMINO TRANSFERASE 32.8 U/L (14-36); BILIRUBIN,TOTAL 0.6 mg/dL (0.2-1.3); BLOOD UREA NITROGEN 11.2 mg/dL (7-17); CALCIUM 8.03 mg/dL (8.4-10.2); CARBON DIOXIDE 29.9 mmol/L (22-30.0); CHLORIDE 105.5 mmol/L (98-107); CREATININE 0.71 mg/dL (0.60-1.30); GLUCOSE 88.7 mg/dL (74-106); POTASSIUM 3.27 mmol/L (3.5-5.1); SODIUM 138.9 mmol/L (134.5-145); TOTAL PROTEIN 5.78 g/dL (6.3-8.2)
[2022-10-18] MEDS: PLAVIX PO SCH (08:25)
[2022-10-18] MEDS: MIRALAX PO SCH (08:25)
[2022-10-18] MEDS: HYDROCHLOROTHIAZIDE PO SCH (08:25)
[2022-10-18] MEDS: NORVASC PO SCH (08:25)
[2022-10-18] MEDS: MUCINEX PO SCH (08:25)
[2022-10-18] MEDS: COZAAR PO SCH (08:25)
[2022-10-18] MEDS: LIPITOR PO SCH (08:25)
[2022-10-18] MEDS ORDERED: K-DUR PO ONE (10:43)
--- NOTE | 2022-10-18 14:14 | PCM.DC ---
Final Diagnosis: Dehydration - resolved. Influenza A - resolving. Rhabdomyolysis - resolved. Date of admit - 10/14/22 Date of discharge - 10/17/22 Physical Exam Appearance: Well-appearing and Obese Ill-appearing: None Pain Distress: None Eyes: AMALIA ENT: Oropharynx normal Neck: Supple Respiratory: Airway patent and Breath sounds clear Cardiovascular: RRR and Pulses normal Musculoskeletal: Normal strength and ROM intact Skin: Warm and Dry Neurological: Sensation intact and Motor intact Psychiatric: Affect appropriate and Mood appropriate (1) Influenza A: Status: Acute Code(s): J10.1 - Influenza due to other identified influenza virus with other respiratory manifestations SNOMED Code(s): 695277804 (2) Rhabdomyolysis: Status: Acute Code(s): M62.82 - Rhabdomyolysis SNOMED Code(s): 969581331 (3) Acute dehydration: Status: Acute Code(s): E86.0 - Dehydration SNOMED Code(s): 54628747 (4) Generalized weakness: Status: Acute Code(s): R53.1 - Weakness SNOMED Code(s): 33136779 Reason for Hospitalization: Admitted with flu and some minor rhabdo after lying on the floor several hours, and some mild dehydration, along with generalized weakness. Prognosis/Condition at Discharge: Good, stable. Medications at Discharge: Medications at Discharge (Home Meds & RX) amlodipine 10 mg tablet 10 mg PO QDAY #90 tabs 03/24/22 atorvastatin 10 mg tablet (Lipitor) 10 mg PO DAILY #90 tab-caps 03/24/22 clopidogrel 75 mg tablet (Plavix) 75 mg PO DAILY #90 tab-caps 03/24/22 hydrochlorothiazide 12.5 mg tablet 12.5 mg PO QDAY #90 tabs 03/24/22 losartan 100 mg tablet 100 mg PO QDAY #90 tabs 03/24/22 potassium chloride 10 mEq tablet,extended release (Klor-Con) 10 meq PO DAILY For low potassium #30 tabs 10/18/22 Lab/Diagnostics: Laboratory Tests 10/14/22 10/14/22 10/14/22 13:46 13:46 13:46 WBC 7.14 RBC 4.95 Hgb 14.9 Hct 45.4 MCV 91.7 MCH 30.1 MCHC 32.8 RDW Coeff of [place] 14.1 Plt Count 178 Immature Gran % (Auto) 0.3 Neut % (Auto) 72.1 Lymph % (Auto) 19.5 [place] % (Auto) 7.8 Eos % (Auto) 0.0 Baso % (Auto) 0.3 Neut # (Auto) 5.2 Lymph # (Auto) 1.4 [place] # (Auto) 0.6 Eos # (Auto) 0.0 Baso # (Auto) 0.0 Immature Gran # (Auto) 0.0 Sodium 137.9 Potassium 3.61 Chloride 100.8 Carbon Dioxide 26.9 Anion Gap 13.81 BUN 40.7 H Creatinine 1.04 Estimated GFR (MDRD) 51.00 BUN/Creatinine Ratio 39.13 Glucose 99.2 Lactic Acid 1.44 Calcium 8.32 L Magnesium Total Bilirubin 0.53 AST 49.7 H ALT 31.6 Alkaline Phosphatase 79.3 Total Creatine Kinase 570.9 H CK-MB (CK-2) 3.590 H CK-MB (CK-2) % 0.6200 Troponin I < 0.012 Total Protein 6.69 Albumin 3.74 Globulin 2.95 Albumin/Globulin Ratio 1.26 Urine Color Urine Clarity Urine pH Ur Specific [place] Urine Protein Urine Glucose (UA) Urine Ketones Urine Blood Urine Nitrite Urine Bilirubin Urine Urobilinogen Ur Leukocyte Esterase Urine Microscopic RBC Urine Microscopic WBC Ur Squamous Epith Cells Urine Bacteria Hyaline Casts Urine Mucus Influ A Molecular Assay Influ B Molecular Assay RSV Antigen SARS CoV-2 RNA Rapid ROBERT Blood Type 10/14/22 10/14/22 10/14/22 13:50 13:50 17:00 WBC RBC Hgb Hct MCV MCH MCHC RDW Coeff of [place] Plt Count Immature Gran % (Auto) Neut % (Auto) Lymph % (Auto) [place] % (Auto) Eos % (Auto) Baso % (Auto) Neut # (Auto) Lymph # (Auto) [place] # (Auto) Eos # (Auto) Baso # (Auto) Immature Gran # (Auto) Sodium Potassium Chloride Carbon Dioxide Anion Gap BUN Creatinine Estimated GFR (MDRD) BUN/Creatinine Ratio Glucose Lactic Acid Calcium Magnesium Total Bilirubin AST ALT Alkaline Phosphatase Total Creatine Kinase CK-MB (CK-2) CK-MB (CK-2) % Troponin I Total Protein Albumin Globulin Albumin/Globulin Ratio Urine Color Dark Urine Clarity Clear Urine pH 5.5 Ur Specific [place] >=1.030 Urine Protein 1+ H Urine Glucose (UA) Negative Urine Ketones 1+ H Urine Blood Negative Urine Nitrite Negative Urine Bilirubin 1+ H Urine Urobilinogen 1.0 H Ur Leukocyte Esterase Negative Urine Microscopic RBC 0-2 Urine Microscopic WBC 2-5 Ur Squamous Epith Cells 2-5 Urine Bacteria 1+ Hyaline Casts 2-5 Urine Mucus 2+ Influ A Molecular Assay Positive by naat H Influ B Molecular Assay Negative by naat RSV Antigen Negative by naat SARS CoV-2 RNA Rapid ROBERT Negative Blood Type 10/15/22 10/15/22 10/15/22 00:15 07:53 08:00 WBC 4.76 RBC 4.43 Hgb 13.2 Hct 40.7 MCV 91.9 MCH 29.8 MCHC 32.4 RDW Coeff of [place] 14.1 Plt Count 143 Immature Gran % (Auto) 0.2 Neut % (Auto) 59.0 Lymph % (Auto) 30.7 [place] % (Auto) 9.7 Eos % (Auto) 0.2 Baso % (Auto) 0.2 Neut # (Auto) 2.8 Lymph # (Auto) 1.5 [place] # (Auto) 0.5 Eos # (Auto) 0.0 Baso # (Auto) 0.0 Immature Gran # (Auto) 0.0 Sodium 137.7 Potassium 3.38 L Chloride 109.8 H Carbon Dioxide 21.8 L Anion Gap 9.48 BUN 24.9 H Creatinine 0.83 Estimated GFR (MDRD) 66.00 BUN/Creatinine Ratio 30.00 Glucose 74.4 Lactic Acid Calcium 7.56 L Magnesium Total Bilirubin 0.49 AST 50.6 H ALT 31.4 Alkaline Phosphatase 75.2 Total Creatine Kinase 595.8 H 589.4 H CK-MB (CK-2) 4.070 H 3.780 H CK-MB (CK-2) % 0.6800 0.6400 Troponin I < 0.012 < 0.012 Total Protein 5.70 L Albumin 3.06 L Globulin 2.64 Albumin/Globulin Ratio 1.15 Urine Color Urine Clarity Urine pH Ur Specific [place] Urine Protein Urine Glucose (UA) Urine Ketones Urine Blood Urine Nitrite Urine Bilirubin Urine Urobilinogen Ur Leukocyte Esterase Urine Microscopic RBC Urine Microscopic WBC Ur Squamous Epith Cells Urine Bacteria Hyaline Casts Urine Mucus Influ A Molecular Assay Influ B Molecular Assay RSV Antigen SARS CoV-2 RNA Rapid ROBERT Blood Type 10/16/22 10/16/22 10/16/22 05:42 05:42 05:42 WBC 4.17 L RBC 4.26 Hgb 12.7 Hct 39.9 MCV 93.7 MCH 29.8 MCHC 31.8 RDW Coeff of [place] 14.1 Plt Count 131 L Immature Gran % (Auto) 0.2 Neut % (Auto) 48.0 Lymph % (Auto) 42.7 [place] % (Auto) 8.4 Eos % (Auto) 0.2 Baso % (Auto) 0.5 Neut # (Auto) 2.0 Lymph # (Auto) 1.8 [place] # (Auto) 0.4 Eos # (Auto) 0.0 Baso # (Auto) 0.0 Immature Gran # (Auto) 0.0 Sodium 139.5 Potassium 3.21 L Chloride 111.2 H Carbon Dioxide 25.5 Anion Gap 6.01 BUN 15.8 Creatinine 0.76 Estimated GFR (MDRD) 73.00 BUN/Creatinine Ratio 20.78 Glucose 81.0 Lactic Acid Calcium 7.59 L Magnesium Total Bilirubin 0.35 AST 41.2 H ALT 30.1 Alkaline Phosphatase 67.0 Total Creatine Kinase CK-MB (CK-2) CK-MB (CK-2) % Troponin I Total Protein 5.45 L Albumin 2.90 L Globulin 2.55 Albumin/Globulin Ratio 1.13 Urine Color Urine Clarity Urine pH Ur Specific [place] Urine Protein Urine Glucose (UA) Urine Ketones Urine Blood Urine Nitrite Urine Bilirubin Urine Urobilinogen Ur Leukocyte Esterase Urine Microscopic RBC Urine Microscopic WBC Ur Squamous Epith Cells Urine Bacteria Hyaline Casts Urine Mucus Influ A Molecular Assay Influ B Molecular Assay RSV Antigen SARS CoV-2 RNA Rapid ROBERT Blood Type AB POSITIVE 10/17/22 10/17/22 10/17/22 05:04 05:04 05:04 WBC 4.63 RBC 4.27 Hgb 12.8 Hct 39.0 MCV 91.3 MCH 30.0 MCHC 32.8 RDW Coeff of [place] 14.1 Plt Count 154 Immature Gran % (Auto) 0.2 Neut % (Auto) 41.3 L Lymph % (Auto) 48.6 [place] % (Auto) 9.1 Eos % (Auto) 0.6 Baso % (Auto) 0.2 Neut # (Auto) 1.9 L Lymph # (Auto) 2.3 [place] # (Auto) 0.4 Eos # (Auto) 0.0 Baso # (Auto) 0.0 Immature Gran # (Auto) 0.0 Sodium 138.6 Potassium 2.93 L Chloride 105.9 Carbon Dioxide 29.3 Anion Gap 6.33 BUN 11.5 Creatinine 0.71 Estimated GFR (MDRD) 79.00 BUN/Creatinine Ratio 16.19 Glucose 88.9 Lactic Acid Calcium 7.97 L Magnesium 1.87 Total Bilirubin 0.42 AST 32.3 ALT 28.8 Alkaline Phosphatase 70.7 Total Creatine Kinase CK-MB (CK-2) CK-MB (CK-2) % Troponin I Total Protein 5.64 L Albumin 3.04 L Globulin 2.60 Albumin/Globulin Ratio 1.16 Urine Color Urine Clarity Urine pH Ur Specific [place] Urine Protein Urine Glucose (UA) Urine Ketones Urine Blood Urine Nitrite Urine Bilirubin Urine Urobilinogen Ur Leukocyte Esterase Urine Microscopic RBC Urine Microscopic WBC Ur Squamous Epith Cells Urine Bacteria Hyaline Casts Urine Mucus Influ A Molecular Assay Influ B Molecular Assay RSV Antigen SARS CoV-2 RNA Rapid ROBERT Blood Type 10/17/22 10/18/22 10/18/22 13:15 05:45 05:45 WBC 5.16 RBC 4.38 Hgb 12.9 Hct 39.9 MCV 91.1 MCH 29.5 MCHC 32.3 RDW Coeff of [place] 14.0 Plt Count 168 Immature Gran % (Auto) 0.2 Neut % (Auto) 45.1 Lymph % (Auto) 44.6 [place] % (Auto) 8.7 Eos % (Auto) 1.2 Baso % (Auto) 0.2 Neut # (Auto) 2.3 Lymph # (Auto) 2.3 [place] # (Auto) 0.5 Eos # (Auto) 0.1 Baso # (Auto) 0.0 Immature Gran # (Auto) 0.0 Sodium 136.7 138.9 Potassium 3.39 L 3.27 L Chloride 103.5 105.5 Carbon Dioxide 30.2 H 29.9 Anion Gap 6.39 6.77 BUN 12.6 11.2 Creatinine 0.70 0.71 Estimated GFR (MDRD) 80.00 79.00 BUN/Creatinine Ratio 18.00 15.77 Glucose 114.1 H 88.7 Lactic Acid Calcium 8.17 L 8.03 L Magnesium Total Bilirubin 0.60 AST 32.8 ALT 27.4 Alkaline Phosphatase 76.1 Total Creatine Kinase CK-MB (CK-2) CK-MB (CK-2) % Troponin I Total Protein 5.78 L Albumin 3.12 L Globulin 2.66 Albumin/Globulin Ratio 1.17 Urine Color Urine Clarity Urine pH Ur Specific [place] Urine Protein Urine Glucose (UA) Urine Ketones Urine Blood Urine Nitrite Urine Bilirubin Urine Urobilinogen Ur Leukocyte Esterase Urine Microscopic RBC Urine Microscopic WBC Ur Squamous Epith Cells Urine Bacteria Hyaline Casts Urine Mucus Influ A Molecular Assay Influ B Molecular Assay RSV Antigen SARS CoV-2 RNA Rapid ROBERT Blood Type Education Provided to Patient and Family: Per nursing staff. Follow-ups: With PCP next week. Discharge Disposition: Home Hospital Course: Admit with catching the flu, having a minor fall, causing muscle contusion (mild rhabdo) and subsequent volume depletion (dehydration). Treated with IV fluid and other appropriate medicines. She steadily improved with weakness resolving to her baseline, able to ambulate. Clinically, all mild rhabdo cleared. Potassium level low, evidently from her diuretic, no GI loss. Corrected and Rx for home. Plan: D/C home with F/U PCP. This discharge done with a [id number] exam and documentation requiring 40 minutes.
== END 2022-10-18 16:25 | disposition home or self-care (01) | DRG 194 ==
LOC: ED 13:24 → MEDSURG A 17:58
PROVIDERS: ADMIT Emergency Medicine Emergency Medical Services; ATTEND Emergency Medicine
DX: Z79.899 Other long term (current) drug therapy; W19.XXXA Unspecified fall, initial encounter; Z74.1 Need for assistance with personal care; Z99.89 Dependence on other enabling machines and devices; M62.82 Rhabdomyolysis; R53.1 Weakness; R26.2 Difficulty in walking, not elsewhere classified; Z51.81 Encounter for therapeutic drug level monitoring; E86.0 Dehydration; Z20.822 Contact with and (suspected) exposure to COVID-19; J10.1 Influenza due to other identified influenza virus with other respiratory manifestations